=== PATIENT | female | born 1960 | race Caucasian/White ===

== ENCOUNTER 2017-08-05 08:44 | Emergency (ER) | payer OTHER ==
--- NOTE | 2017-08-05 09:21 | EDPHY ---
HPI/HX/ROS/PE/MDM Narrative: CHIEF COMPLAINT: Facial trauma, fall HPI: The patient is a 57 y/o female complaining of facial trauma secondary to a trip and fall in the bathroom around 04:00 this morning, about 5 hours ago. She describes tripping over the scale and striking her face on the ground causing a laceration above her lip and in her mouth as well as an abrasion to her nose. She did not lose consciousness and denies dental trauma, weakness, paresthesias , extremity injuries, or any antecedent symptoms. No anticoagulant use. REVIEW OF SYSTEMS: Aside from elements discussed in the HPI, a comprehensive 10-point review of systems was reviewed and is negative. PMH: Ortho surgeries, DVT, depression. SOCIAL HISTORY: Lives in [place], , employed. PHYSICAL EXAM: General:Patient is alert, in no acute distress. Face: 1.5cm L-shaped laceration to upper lip, 1cm laceration to lip mucosal surface, mild abrasion to nose ENT:Eyes are normal to inspection. ENT inspection normal. Neck: Normal inspection. Full range of motion. Respiratory:No respiratory distress. Breath sounds normal bilaterally. Cardiovascular: Regular rate and rhythm. Strong peripheral pulses. Normal cap refill. Abdomen:The abdomen is nontender to palpation. There are no peritoneal signs. Back: Normal to inspection. No tenderness to palpation. Skin: Normal color. No rash. Warm and dry. Extremities: Normal appearance. Full range of motion. Neuro: Oriented x3. Normal motor function. Normal sensory function. ED Course: This is a 57 y/o female who presents with lacerations above her lip and mucosal surface secondary to a mechanical trip and fall this morning. She also has a mild nose abrasion. She is neurovascularly intact and no other trauma noted on exam. No indication for head imaging. Plan for wound care and laceration repair. Procedure: Laceration repair. Verbal consent was obtained from the patient. The L-shaped 1.5cm laceration above the upper lip was anesthetized using lidocaine. The wound was cleaned with standard ED protocol, draped and explored to its base with a gloved finger. There were no deep structures involved. The wound was repaired in single layer technique with 4 sutures of 6-0 Prolene. The wound repair was [ simple/complex]. The procedure was performed by myself, Dr. Villalta. Procedure: Laceration repair. Verbal consent was obtained from the patient. The linear 1cm laceration on the upper lip mucosa was anesthetized using lidocaine. The wound was cleaned with standard ED protocol, draped and explored to its base with a gloved finger. There were no deep structures involved. The wound was repaired in single layer technique with 3 sutures of 6-0 Vicryl. The wound repair was simple. The procedure was performed by myself, Dr. Villalta. Patient will be discharged with standard follow up instructions and return precautions. She is comfortable with this plan. General Time Seen by Provider: 08/05/17 09:09 Initial Vital Signs: Initial Vital Signs Temperature (C) 36.7 C 08/05/17 08:56 Heart Rate 79 08/05/17 08:56 Respiratory Rate 16 08/05/17 08:56 Blood Pressure 133/103 H 08/05/17 08:56 O2 Sat (%) 97 08/05/17 08:56 O2 Delivery Mode Room Air Allergies/Adverse Reactions: Sulfa (Sulfonamide Antibiotics) Allergy (Verified 08/07/13 19:13) Home Medications: Medication Instructions Recorded Fluoxetine 08/07/13 traZODONE 10/03/13 Departure - Departure Disposition: Home, Routine, Self-Care Clinical Impression: Laceration of face Qualifiers: Encounter type: initial encounter Qualified Code(s): S01.81XA - Laceration without foreign body of other part of head, initial encounter Fall Qualifiers: Encounter type: initial encounter Qualified Code(s): W19.XXXA - Unspecified fall, initial encounter Condition: Good Instructions: Care For Your Stitches (ED), Care For Your Absorbable Stitches ( ED), Facial Laceration (ED) Additional Instructions: 1. Return for suture removal in 5-7 days. 2. Keep area clean and dry. Okay to gently wash with soap and water, but do not scrub area. Apply thin layer of Bacitracin over external laceration while healing. 3. Return sooner if you develop severe pain or swelling, dramatic increase in redness or warmth around the wound, fever, or other worsening of condition. Referrals: Concepción Ji MD [Primary Care Provider] - As per Instructions Report Scribed for: Jorgito Villalta Report Scribed by: Chanel Oh Date of Report: 05/11/18 Time of Report: 09:21 Physician Review and Approval Statement: Portions of this note were transcribed by an ED scribe. I personally performed the history, physical exam, and medical decision making; and confirm the accuracy of the information in the transcribed note.
[2017-08-05 10:18] VITALS: BP 137/95
== END 2017-08-05 10:18 | disposition home or self-care (01) ==
PROC: 0CQ0XZZ Repair Upper Lip, External Approach (ICD-10-PCS; principal; 2017-08-05)
DX: S01.511A Laceration without foreign body of lip, initial encounter (principal); W01.198A Fall on same level from slipping, tripping and stumbling with subsequent striking against other object, initial encounter; Y92.002 Bathroom of unspecified non-institutional (private) residence as the place of occurrence of the external cause